=== PATIENT | female | born 1985 | race Caucasian/White ===

== ENCOUNTER 2017-08-01 04:51 | Emergency (ER) | payer OTHER ==
[2017-08-01] MEDS ORDERED: Methocarbamol 1 GM/10 ML VIAL SLOW IVP SCH (05:15)
[2017-08-01] MEDS ORDERED: HYDROmorphone 0.5 MG/0.5 ML SYRINGE ONE ×3 (05:45→06:22)
== END 2017-08-01 06:58 | disposition home or self-care (01) ==
LOC: ERS 04:51
DX: M54.5 Low back pain (principal); F98.8 Other specified behavioral and emotional disorders with onset usually occurring in childhood and adolescence; Z79.899 Other long term (current) drug therapy; X50.0XXA Overexertion from strenuous movement or load, initial encounter
CPT/HCPCS: 96374; 96375; 96376; J1170; J2800

== ENCOUNTER 2017-12-22 06:46 | Emergency (ER) | payer OTHER ==
[2017-12-22] MEDS ORDERED: Cyclobenzaprine 10 MG TAB ONE (07:21)
== END 2017-12-22 07:47 | disposition home or self-care (01) ==
LOC: ERS 06:46
DX: M54.12 Radiculopathy, cervical region (principal); M54.5 Low back pain; Z79.899 Other long term (current) drug therapy; X50.9XXA Other and unspecified overexertion or strenuous movements or postures, initial encounter
CPT/HCPCS: 96372; J2270

== ENCOUNTER 2018-02-08 10:37 | Outpatient (CLI) | payer OTHER | END 2018-02-08 10:38 | disposition home or self-care (01) | LOC: BICMRI 10:37 | PROVIDERS: ATTEND Family Medicine | DX: S46.912D Strain of unspecified muscle, fascia and tendon at shoulder and upper arm level, left arm, subsequent encounter (principal) ==

== ENCOUNTER 2018-11-13 05:08 | Emergency (ER) | payer OTHER ==
[2018-11-13] MEDS ORDERED: Ondansetron PF 4 MG/2 ML Vial ONE (05:21)
[2018-11-13] MEDS ORDERED: Pantoprazole 40 MG VIAL ONE (05:21)
[2018-11-13] MEDS ORDERED: Morphine 4 MG/ML VIAL ONE ×2 (05:21→08:00)
[2018-11-13 06:06] LABS: BHCG - Serum Negative (NEGATIVE); Pregs Control Background? CLEAR/WHITE (CLR/WHITE); Pregs Control Bar Appear? YES (CONTROL BAR)
[2018-11-13 06:20] LABS: #Basophils 0.1 thou/uL (0.0-0.2); #Eosinphils 0.1 thou/uL (0.0-0.7); #Lymphocytes 1.8 thou/uL (1.20-3.40); #Monocytes 0.6 thou/uL (0.11-0.59); #Neutrophils 6.4 thou/uL (1.40-6.50); %Basophils 0.6 % (0.0-1.0); %Eosinophils 1.5 % (0.0-10.0); %Lymphocytes 20.4 % (21.0-51.0); %Monocytes 6.9 % (0.0-10.0); %Neutrophils 70.7 % (42.0-75.0); Hemoglobin 8.8 g/dL (12.0-16.0); Hypochromia SLIGHT = 6-15 cells (100X) (0-5/hpf); MDiff Complete? YES; Mean Corpuscular Hemoglobin 20.8 pg (27.0-31.0); Mean Corpuscular Volume 67.2 fL (78.0-98.0); Mean Platelet Volume 11.2 fL (7.4-10.4); Microcytosis MODERATE=15-30 cells (100X) (0-5/hpf); Platelet Count 283 thou/uL (130-400); Platelet Morphology Comment Appears Adequate; RBC Distribution Width 15.4 % (11.5-14.5); Red Blood Cell (RBC) Count 4.23 mill/uL (4.20-5.40)
[2018-11-13 06:22] LABS: ALT (SGPT) 10 U/L (8-55); AST (SGOT) 18 U/L (5-34); Albumin 4.4 g/dL (3.5-5.0); Alkaline Phosphatase 51 U/L (40-150); Anion Gap 15 mmol/L (10-20); BUN (Urea Nitrogen) 9 mg/dL (7.0-18.7); Bilirubin, Total 0.4 mg/dL (0.2-1.2); CK (CPK) 66 U/L (29-168); Calc. Creatinine Clearance 0 mL/min (70-130); Calcium 9.5 mg/dL (7.8-10.44); Carbon Dioxide 20 mmol/L (22-29); Chloride 106 mmol/L (98-107); Estimated GFR-MDRD 80; Globulin 3.5 g/dL (2.4-3.5); Glucose 103 mg/dL (70-105); Potassium 3.7 mmol/L (3.5-5.1); Protein, Total 7.9 g/dL (6.0-8.3); Sodium 137 mmol/L (136-145)
[2018-11-13 07:29] LABS: Bilirubin Negative (Negative); Blood, Urine Negative (Negative); Clarity CLEAR (Clear); Glucose, Urine (Dipstick) Negative (Negative); Leukocyte Negative (Negative); Nitrite Negative (Negative); Protein, Urine (Dipstick) Negative (Neg-Trace); Specific Gravity, Urine 1.004 (1.002-1.036); Urobilinogen 0.2 mg/dL (0.2-1.0); pH, Urine 6.5 (5.0-9.0)
--- NOTE | 2018-11-13 07:46 | CT ---
Contrast-enhanced images of abdomen and pelvis. History: Abdominal pain. Contrast-enhanced images of the abdomen pelvis obtained after administration of IV and oral contrast. The lung bases are unremarkable. No evidence of free intraperitoneal air seen. The liver, spleen, gallbladder, pancreas, adrenal glands and kidneys are unremarkable. The distal ile um is unremarkable. Some stool noted in the proximal descending colon. The appendix definitively does not visualize. The uterus and ovaries are unremarkable. A small amount of free pelvic fluid seen. Right-sided corpus luteal cyst seen. A small amount of free air seen in the urinary bladder etiology for this is unknown. No evidence of periaortic lymphadenopathy seen. IMPRESSION: Small amount of free pelvic fluid appendix definitively not visualized.
== END 2018-11-13 08:21 | disposition home or self-care (01) ==
LOC: ERS 05:08 → EEVIPCON 05:08 → ERS 08:21
DX: K64.4 Residual hemorrhoidal skin tags (principal); D64.9 Anemia, unspecified; F98.8 Other specified behavioral and emotional disorders with onset usually occurring in childhood and adolescence; Z79.899 Other long term (current) drug therapy
CPT/HCPCS: 74177; 80053; 81003; 82274; 82550; 84703; 85025; 96361; 96374; 96375; 96376; C9113; J2270; J2405

== ENCOUNTER 2018-12-07 02:26 | Emergency (ER) | payer OTHER ==
[2018-12-07 03:09] LABS: #Basophils 0.1 thou/uL (0.0-0.2); #Eosinphils 0.3 thou/uL (0.0-0.7); #Monocytes 0.6 thou/uL (0.11-0.59); #Neutrophils 4.9 thou/uL (1.40-6.50); %Eosinophils 4.2 % (0.0-10.0); %Lymphocytes 25.4 % (21.0-51.0); %Monocytes 7.9 % (0.0-10.0); %Neutrophils 61.5 % (42.0-75.0); Hemoglobin 8.2 g/dL (12.0-16.0); Mean Corpuscular HGB CONC 31.1 g/dL (32.0-36.0); Mean Corpuscular Volume 67.5 fL (78.0-98.0); Mean Platelet Volume 10.8 fL (7.4-10.4); Platelet Count 300 thou/uL (130-400); RBC Distribution Width 16.2 % (11.5-14.5); Red Blood Cell (RBC) Count 3.88 mill/uL (4.20-5.40)
== END 2018-12-07 07:55 | disposition home or self-care (01) ==
LOC: ERS 02:26
DX: D64.9 Anemia, unspecified (principal)
CPT/HCPCS: 36430; 85025; 86850; 86900; 86901; 99284; P9016

== ENCOUNTER 2019-01-22 03:13 | Emergency (ER) | payer OTHER | END 2019-01-22 03:32 | disposition home or self-care (01) | LOC: ERS 03:13 | DX: S39.012A Strain of muscle, fascia and tendon of lower back, initial encounter (principal); S00.83XA Contusion of other part of head, initial encounter; F90.9 Attention-deficit hyperactivity disorder, unspecified type; Z79.899 Other long term (current) drug therapy; Y04.8XXA Assault by other bodily force, initial encounter | CPT/HCPCS: 99283 ==

== ENCOUNTER 2019-05-03 10:53 | Emergency (ER) | payer OTHER ==
[2019-05-03] MEDS ORDERED: Diazepam 5 MG TAB ONE ×2 (11:46→11:47)
[2019-05-03] MEDS ORDERED: Ondansetron PF 4 MG/2 ML Vial ONE (11:47)
[2019-05-03] MEDS ORDERED: Ketorolac Tromethamine 30 MG/ML VIAL ONE (11:47)
[2019-05-03] MEDS ORDERED: Morphine 4 MG/ML VIAL ONE ×2 (11:47→12:43)
[2019-05-03] MEDS ORDERED: Dexamethasone 4 mg/ml Vial ONE (11:51)
== END 2019-05-03 13:43 | disposition home or self-care (01) ==
LOC: ERS 10:53
DX: M54.5 Low back pain (principal); F90.9 Attention-deficit hyperactivity disorder, unspecified type; Z79.899 Other long term (current) drug therapy
CPT/HCPCS: 94760; 96374; 96375; 96376; J1100; J1885; J2270; J2405

== ENCOUNTER 2019-07-04 18:51 | Emergency (ER) | payer OTHER ==
[~2019-07-04 18:51] MED LIST: Iopamidol-370 76% 500 ML 1 ML ONE
[2019-07-04] MEDS ORDERED: Fentanyl 100 MCG/2 ML VIAL ONE (19:19)
[2019-07-04] MEDS ORDERED: Promethazine HCl 25 MG/ML VIAL ONE (19:21)
[2019-07-04 19:31] LABS: Hemoglobin 11.2 g/dL (12.0-16.0); Mean Corpuscular HGB CONC 32.8 g/dL (32.0-36.0); Mean Corpuscular Hemoglobin 24.3 pg (27.0-31.0); Mean Corpuscular Volume 74.1 fL (78.0-98.0); Mean Platelet Volume 10.5 fL (7.4-10.4); Platelet Count 281 thou/uL (130-400); RBC Distribution Width 15.8 % (11.5-14.5); Red Blood Cell (RBC) Count 4.59 mill/uL (4.20-5.40); White Blood Cell (WBC) Count 13.6 thou/uL (4.8-10.8)
[2019-07-04 19:32] LABS: #Lymphocytes 0.4 thou/uL (1.20-3.40); #Monocytes 0.5 thou/uL (0.11-0.59); #Neutrophils 12.6 thou/uL (1.40-6.50); %Basophils 0.2 % (0.0-1.0); %Eosinophils 0.2 % (0.0-10.0); %Lymphocytes 2.8 % (21.0-51.0); %Neutrophils 92.8 % (42.0-75.0)
[2019-07-04 19:47] LABS: Anisocytosis SLIGHT = 6-15 cells (100X) (0-5/hpf); Hypochromia SLIGHT = 6-15 cells (100X) (0-5/hpf); MDiff Complete? YES; Microcytosis SLIGHT = 6-15 cells (100X) (0-5/hpf); Ovalocytes SLIGHT = 2-5 cells (100X) (0-1/hpf); Platelet Morphology Comment Appears Adequate; Polychromasia SLIGHT = 2-3 cells (100X) (0-2/hpf); Tear Drops SLIGHT = 2-5 cells (100X) (0-1/hpf)
[2019-07-04 19:52] LABS: ALT (SGPT) 13 U/L (8-55); AST (SGOT) 18 U/L (5-34); Albumin 4.5 g/dL (3.5-5.0); Alkaline Phosphatase 56 U/L (40-110); Anion Gap 17 mmol/L (10-20); BUN (Urea Nitrogen) 16 mg/dL (7.0-18.7); Bilirubin, Total 0.8 mg/dL (0.2-1.2); Calc. Creatinine Clearance 0 mL/min (70-130); Calcium 9.3 mg/dL (7.8-10.44); Carbon Dioxide 19 mmol/L (22-29); Chloride 104 mmol/L (98-107); Estimated GFR-MDRD 80; Globulin 3.4 g/dL (2.4-3.5); Glucose 109 mg/dL (70-105); Lipase 21 U/L (8-78); Potassium 3.5 mmol/L (3.5-5.1); Protein, Total 7.9 g/dL (6.0-8.3); Sodium 136 mmol/L (136-145)
[2019-07-04] MEDS ORDERED: HYDROmorphone 0.5 MG/0.5 ML SYRINGE ONE ×2 (20:01→22:05)
[2019-07-04] MEDS ORDERED: Metoclopramide HCl 10 MG/2 ML VIAL ONE (20:02)
[2019-07-04] MEDS ORDERED: Lidocaine Viscous Sol 2% 15 ml UD Cup ONE (20:04)
[2019-07-04] MEDS ORDERED: Mag-Al 1200 mg/1200 mg/30 ML UDCUP ONE (20:04)
--- NOTE | 2019-07-04 20:05 | ULT ---
EXAM: US Gallbladder RUQ CLINICAL HISTORY: Pain. Evaluate for cholecystitis. COMPARISON: 07/19/2013 FINDINGS: Pancreas: Increased echogenicity of the head of pancreas. Remainder the pancreas is obscured by meghan l gas Liver:Normal hepatic parenchymal echotexture. No hepatic masses or intrahepatic biliary dilatation. T he contour of the hepatic margin is maintained. Right hepatic lobe measures 14.1 cm Gallbladder: No sonographic evidence of cholelithiasis, gallbladder wall thickening or pericholecysti c fluid. Dejesus's sign:Negative Portal Vein: Patent. Appropriate directional flow Bile ducts: Common bile duct diameter 0.2 cm Right kidney: Location of the pelvis without calyceal dilatation.. Right kidney measures 9.4 cm in [facility]. IMPRESSION: 1. No sonographic evidence of cholelithiasis or cholecystitis. 2. Nonspecific increased echogenicity of the pancreas. 3. Dilatation of the right renal pelvis without calyceal dilatation. Significance is uncertain. Corre lation made with CT from 09/29/2018 does demonstrate a prominent right renal pelvis.. Transcribed Date/Time: 07/04/2019 8:31 PM
[2019-07-04] MEDS ORDERED: diphenhydrAMINE 50 MG/ML VIAL ONE (20:20)
[2019-07-04 21:00] LABS: Bilirubin Negative (Negative); Blood, Urine Negative (Negative); Clarity Clear (Clear); Glucose, Urine (Dipstick) Normal (Negative); Leukocyte Negative Leu/uL (Negative); Nitrite Negative (Negative); Protein, Urine (Dipstick) 10 mg/dL (Neg-Trace); Urobilinogen Normal mg/dL (Less than 2)
[2019-07-04 21:01] LABS: Pregnancy Test - Urine (BHCG) Negative (Negative); Pregu Control Background? CLEAR/WHITE (CLR/WHITE); Pregu Control Bar Appear? YES (CONTROL BAR); Specific Gravity 1.024 (1.002-1.036)
--- NOTE | 2019-07-04 21:30 | CT ---
EXAM: CT ABDOMEN AND PELVIS HISTORY: Abdominal pain. History of ulcers. Chills. COMPARISON: 11/13/2018 Procedure: Multiple contiguous axial images were obtained and a CT of the abdomen and pelvis with IV contrast. C oronal reformats were performed. FINDINGS: Lower Chest: within normal limits. Vessels: Normal caliber aorta Heart: Normal heart size Abdomen: Portal vein:Patent Gallbladder: No calcified gallstones. Normal caliber wall. Liver: within normal limits. Pancreas: within normal limits. Spleen: No abnormal enhancement. There does appear to be mild fullness of the splenic vein with mild varices at the splenic hilum. Adrenals: within normal limits. Kidneys: Symmetric enhancement. No obstructive uropathy. No evidence of calyceal dilatation. Slightly prominent right renal pelvis is noted. Peritoneum: No ascites or free air, no fluid collection. Bowel: Limited evaluation due to the lack of oral contrast administration. No evidence of bowel obstr uction. Ileocecal junction is unremarkable. Normal caliber appendix. Scattered fecal material in a nondistended, nondilated colon. Mesentery and Retroperitoneum: No enlarged mesenteric or retroperitoneal lymph nodes. Abdominal Wall: within normal limits. Pelvis: Reproductive Organs: Uterus and adnexal structures are grossly unremarkable. Pelvis: No mass, lymphadenopathy, free air or free fluid. Bladder: Limited evaluation due to inadequate distention. Grossly no abnormality. Bones: within normal limits. IMPRESSION: 1. No evidence of acute intraabdominal\pelvic abnormality. Line 2. Mild fullness of the splenic vein. Mild splenic varices. Significance is uncertain. Correlate clin ically. Nonemergent hepatic Doppler ultrasound can be performed, along with a GI consultation.
[2019-07-04] MEDS ORDERED: Ondansetron PF 4 MG/2 ML Vial ONE (22:05)
== END 2019-07-04 23:22 | disposition home or self-care (01) ==
LOC: ERS 18:51
DX: K82.8 Other specified diseases of gallbladder (principal); F98.8 Other specified behavioral and emotional disorders with onset usually occurring in childhood and adolescence
CPT/HCPCS: 74177; 76705; 80053; 81003; 81025; 83690; 85025; 96361; 96365; 96375; 96376; J1170; J1200; J2405; J2550; J2765; J3010; Q9967

== ENCOUNTER 2019-10-01 21:35 | Emergency (ER) | payer OTHER ==
[2019-10-01] MEDS ORDERED: Morphine 4 MG/ML VIAL ONE (22:17)
[2019-10-01] MEDS ORDERED: Ketorolac Tromethamine 30 MG/ML VIAL ONE (22:17)
[2019-10-01] MEDS ORDERED: Ondansetron PF 4 MG/2 ML Vial ONE (22:17)
[2019-10-01] MEDS ORDERED: Dexamethasone 10 MG/ML VIAL ONE (22:17)
[2019-10-01] MEDS ORDERED: Methocarbamol 1 GM in Sodium Chloride 0.9% 100 ML IVPB SCH (23:59)
[2019-10-02] MEDS ORDERED: Morphine 4 MG/ML VIAL ONE (00:03)
== END 2019-10-02 00:22 | disposition home or self-care (01) ==
LOC: ERS 21:35
DX: M62.830 Muscle spasm of back (principal); F98.8 Other specified behavioral and emotional disorders with onset usually occurring in childhood and adolescence; Z79.899 Other long term (current) drug therapy
CPT/HCPCS: 96361; 96365; 96375; 96376; J1100; J1885; J2270; J2405; J2800; J3490

== ENCOUNTER 2019-12-11 01:49 | Emergency (ER) | payer OTHER ==
[2019-12-11 03:04] LABS: HIV (1/2) Antibody/Antigen Non-Reactive (NonReactive); HIV 1/2 INDEX 0.09 S/CO (<1.00); Hep B Surf AB Non-Reactive (NonReactive); Hep C IgG Ab Non-Reactive (NonReactive); Hep C Index 0.09 S/CO (0-0.79)
== END 2019-12-11 02:17 | disposition home or self-care (01) ==
LOC: ERS 01:49
DX: Z77.21 Contact with and (suspected) exposure to potentially hazardous body fluids (principal); F98.8 Other specified behavioral and emotional disorders with onset usually occurring in childhood and adolescence; Z79.899 Other long term (current) drug therapy
CPT/HCPCS: 86706; 86803; 87389; 99283

== ENCOUNTER 2020-04-03 12:37 | Outpatient (CLI) | payer OTHER ==
--- NOTE | 2020-04-03 14:14 | MRI ---
Exam: MRI cervical spine without contrast HISTORY: Cervical radiculopathy. Neck pain and headache for weeks.. COMPARISON: None FINDINGS: Appropriate T1 marrow signal intensity of the cervical vertebrae. Cervical spine vertebral body heig ht is maintained. No fracture. No significant STIR hyperintensity to suggest ligamentous injury or vertebral body edema Visualized brain parenchyma, cervicomedullary junction, cervical cord and the upper thoracic cord hav e a normal size and signal intensity C2-C3: No significant central canal stenosis or significant neural foraminal narrowing C3-C4: Minimal broad-based disc bulge. No significant central canal stenosis or significant neural fo raminal narrowing. C4-C5: Broad-based disc bulge abuts the thecal sac. No significant central canal stenosis or signific ant neural foraminal narrowing. C5-C6: Broad-based discussed by complex. No significant central canal stenosis or significant neural foraminal narrowing C6-C7: No significant central canal stenosis. Patent neural foramina C7-T1: No significant central canal stenosis. Patent neural foramina IMPRESSION: No significant central canal stenosis or neural foraminal narrowing throughout the cervical spine Transcribed Date/Time: 04/03/2020 2:29 PM
== END 2020-04-03 12:38 | disposition home or self-care (01) ==
LOC: SCSMRI 12:37
DX: M54.12 Radiculopathy, cervical region (principal)
CPT/HCPCS: 72141

== ENCOUNTER 2020-04-14 23:07 | Emergency (ER) | payer OTHER ==
[2020-04-15 13:00] LABS: SARS-CoV-2 MS2 Positive; SARS-CoV-2 N Gene Negative; SARS-CoV-2 S Gene Negative; SARS-CoV-2 by NAA Not Detected (NotDetected); SARS-CoV-2 orf1ab Negative
== END 2020-04-14 23:25 | disposition home or self-care (01) ==
LOC: ERS 23:07 → EEVIPCON 23:07 → ERS 23:25
DX: Z20.828 Contact with and (suspected) exposure to other viral communicable diseases (principal)
CPT/HCPCS: 87635; U0003

== ENCOUNTER 2020-10-02 01:55 | Emergency (ER) | payer OTHER ==
[2020-10-02] MEDS ORDERED: Morphine 4 MG/ML VIAL ONE (02:42)
[2020-10-02] MEDS ORDERED: Promethazine HCl 25 MG/ML VIAL ONE (02:42)
[2020-10-02 02:51] LABS: Hemoglobin 10.7 g/dL (12.0-16.0); Mean Corpuscular HGB CONC 31.3 g/dL (32.0-36.0); Mean Corpuscular Hemoglobin 23.7 pg (27.0-31.0); Mean Corpuscular Volume 75.8 fL (78.0-98.0); Mean Platelet Volume 10.5 fL (7.4-10.4); Platelet Count 324 thou/uL (130-400); RBC Distribution Width 17.3 % (11.5-14.5); White Blood Cell (WBC) Count 17.5 thou/uL (4.8-10.8)
[2020-10-02 03:05] LABS: BHCG - Serum Negative (NEGATIVE); Pregs Control Background? CLEAR/WHITE (CLR/WHITE); Pregs Control Bar Appear? YES (CONTROL BAR)
[2020-10-02 03:07] LABS: ALT (SGPT) 28 U/L (8-55); AST (SGOT) 35 U/L (5-34); Albumin 3.9 g/dL (3.5-5.0); Alkaline Phosphatase 48 U/L (40-110); Anion Gap 13 mmol/L (10-20); BUN (Urea Nitrogen) 15 mg/dL (7.0-18.7); Bilirubin, Total 0.4 mg/dL (0.2-1.2); Calc. Creatinine Clearance 0 mL/min (70-130); Calcium 9.4 mg/dL (7.8-10.44); Carbon Dioxide 21 mmol/L (22-29); Chloride 107 mmol/L (98-107); Globulin 2.9 g/dL (2.4-3.5); Glucose 130 mg/dL (70-105); Lipase 13 U/L (8-78); Potassium 3.4 mmol/L (3.5-5.1); Protein, Total 6.8 g/dL (6.0-8.3); Sodium 138 mmol/L (136-145)
[2020-10-02 03:13] LABS: Band 9 % (5-11); Elliptocytes SLIGHT = 2-5 cells (100X) (0-1/hpf); Lymphocytes 4 % (21-51); MDiff Complete? YES; Microcytosis SLIGHT = 6-15 cells (100X) (0-5/hpf); Monocytes 1 % (0-10); Neutrophil 86 % (42-75)
[2020-10-02] MEDS ORDERED: Mag-Al 1200 mg/1200 mg/30 ML UDCUP ONE (04:01)
[2020-10-02] MEDS ORDERED: Lidocaine Viscous Sol 2% 15 ml UD Cup ONE (04:01)
[2020-10-02] MEDS ORDERED: Iopamidol 370 76% 100 ML VIAL ONE (12:25)
== END 2020-10-02 04:22 | disposition home or self-care (01) ==
LOC: ERS 01:55
DX: R11.2 Nausea with vomiting, unspecified (principal); R10.33 Periumbilical pain
CPT/HCPCS: 36415; 74177; 80053; 83690; 84703; 85025; 96365; 96372; J0500; J2270; J2550; Q9967

== ENCOUNTER 2022-01-09 21:02 | Emergency (ER) | payer BC, OTHER ==
[2022-01-09] MEDS ORDERED: Ketorolac Tromethamine 30 MG/ML VIAL ONE (21:16)
[2022-01-09] MEDS ORDERED: Metoclopramide HCl 10 MG/2 ML VIAL ONE (21:16)
[2022-01-09] MEDS ORDERED: Ondansetron PF 4 MG/2 ML Vial ONE (21:16)
[2022-01-09] MEDS ORDERED: Benzonatate 100 MG CAP ONE (21:27)
[2022-01-09 21:41] LABS: #Basophils 0.1 thou/uL (0.0-0.2); #Lymphocytes 0.6 thou/uL (1.20-3.40); #Monocytes 0.9 thou/uL (0.11-0.59); #Neutrophils 7.1 thou/uL (1.40-6.50); %Basophils 0.6 % (0.0-1.0); %Eosinophils 0.3 % (0.0-10.0); %Lymphocytes 7.2 % (21.0-51.0); %Neutrophils 81.9 % (42.0-75.0); Hemoglobin 11.7 g/dL (12.0-16.0); Mean Corpuscular HGB CONC 33.4 g/dL (32.0-36.0); Mean Corpuscular Hemoglobin 28.1 pg (27.0-31.0); Mean Corpuscular Volume 84.2 fL (78.0-98.0); Mean Platelet Volume 9.6 fL (7.4-10.4); Platelet Count 194 thou/uL (130-400); RBC Distribution Width 15.1 % (11.5-14.5); Red Blood Cell (RBC) Count 4.17 mill/uL (4.20-5.40); White Blood Cell (WBC) Count 8.7 thou/uL (4.8-10.8)
[2022-01-09 22:31] LABS: SARS-CoV-2 NAA Rapid Test DETECTED (NotDetected)
[2022-01-09 22:34] LABS: ALT (SGPT) 20 U/L (8-55); AST (SGOT) 31 U/L (5-34); Albumin 3.9 g/dL (3.5-5.0); Alkaline Phosphatase 60 U/L (40-110); Anion Gap 16 mmol/L (10-20); BUN (Urea Nitrogen) 10 mg/dL (7.0-18.7); Bilirubin, Total 0.3 mg/dL (0.2-1.2); Calc. Creatinine Clearance 0 mL/min (70-130); Calcium 8.9 mg/dL (7.8-10.44); Carbon Dioxide 19 mmol/L (22-29); Chloride 103 mmol/L (98-107); Estimated GFR 104; Globulin 3.5 g/dL (2.4-3.5); Glucose 95 mg/dL (70-105); Potassium 4.3 mmol/L (3.5-5.1); Protein, Total 7.4 g/dL (6.0-8.3); Sodium 134 mmol/L (136-145)
== END 2022-01-09 23:58 | disposition home or self-care (01) ==
LOC: EEVIPCON 21:02 → ERS 21:02
DX: U07.1 COVID-19 (principal); Z79.899 Other long term (current) drug therapy
CPT/HCPCS: 71045; 80053; 85025; 96361; 96374; 96375; J1885; J2405; J2765

== ENCOUNTER 2022-03-20 15:05 | Emergency (ER) | payer BC ==
[2022-03-20] MEDS ORDERED: diphenhydrAMINE 12.5 MG/5 ML UDCUP ONE (15:23)
[2022-03-20] MEDS ORDERED: Ketorolac Tromethamine 30 MG/ML VIAL ONE (15:23)
[2022-03-20] MEDS ORDERED: Metoclopramide HCl 10 MG/2 ML VIAL ONE ×2 (15:23→17:18)
[2022-03-20] MEDS ORDERED: Acetaminophen 500 MG TAB ONE (15:23)
[2022-03-20] MEDS ORDERED: diphenhydrAMINE 50 MG/ML VIAL ONE ×2 (15:25→17:35)
== END 2022-03-20 18:23 | disposition home or self-care (01) ==
LOC: ERS 15:05
DX: G43.909 Migraine, unspecified, not intractable, without status migrainosus (principal)
CPT/HCPCS: 96365; 96375; 96376; J1200; J1885; J2765; Q0163

== ENCOUNTER 2022-03-24 07:42 | Emergency (ER) | payer BC ==
[2022-03-24] MEDS ORDERED: Lorazepam 2 MG/ML VIAL ONE (07:56)
[2022-03-24 08:23] LABS: #Basophils 0.1 thou/uL (0.0-0.2); #Eosinphils 0.3 thou/uL (0.0-0.7); #Lymphocytes 2.4 thou/uL (1.20-3.40); #Monocytes 0.9 thou/uL (0.11-0.59); #Neutrophils 5.4 thou/uL (1.40-6.50); %Basophils 0.8 % (0.0-1.0); %Eosinophils 3.4 % (0.0-10.0); %Lymphocytes 26.8 % (21.0-51.0); %Monocytes 9.3 % (0.0-10.0); %Neutrophils 59.7 % (42.0-75.0); Hemoglobin 12.1 g/dL (12.0-16.0); Mean Corpuscular HGB CONC 32.9 g/dL (32.0-36.0); Mean Corpuscular Hemoglobin 28.3 pg (27.0-31.0); Mean Corpuscular Volume 85.9 fL (78.0-98.0); Mean Platelet Volume 9.1 fL (7.4-10.4); Platelet Count 247 thou/uL (130-400); Red Blood Cell (RBC) Count 4.28 mill/uL (4.20-5.40); White Blood Cell (WBC) Count 9.1 thou/uL (4.8-10.8)
[2022-03-24 08:28] LABS: Bilirubin Negative (Negative); Blood, Urine Negative (Negative); Clarity Clear (Clear); Glucose, Urine (Dipstick) Normal (Negative); Ketone, Urine Negative (Negative); Leukocyte Negative Leu/uL (Negative); Nitrite Negative (Negative); Protein, Urine (Dipstick) Negative (Neg-Trace); Urobilinogen Normal mg/dL (Less than 2)
[2022-03-24 08:31] LABS: Pregnancy Test - Urine (BHCG) Negative (Negative); Pregu Control Background? CLEAR/WHITE (CLR/WHITE); Pregu Control Bar Appear? YES (CONTROL BAR)
[2022-03-24 08:58] LABS: ALT (SGPT) 36 U/L (8-55); AST (SGOT) 22 U/L (5-34); Albumin 4.2 g/dL (3.5-5.0); Alkaline Phosphatase 60 U/L (40-110); Anion Gap 14 mmol/L (10-20); BUN (Urea Nitrogen) 12 mg/dL (7.0-18.7); Bilirubin, Total 0.3 mg/dL (0.2-1.2); Calc. Creatinine Clearance 0 mL/min (70-130); Calcium 9.1 mg/dL (7.8-10.44); Carbon Dioxide 25 mmol/L (22-29); Chloride 107 mmol/L (98-107); Estimated GFR 73; Globulin 2.7 g/dL (2.4-3.5); Glucose 85 mg/dL (70-105); Potassium 4.3 mmol/L (3.5-5.1); Protein, Total 6.9 g/dL (6.0-8.3); Sodium 142 mmol/L (136-145)
[2022-03-24] MEDS ORDERED: Iopamidol-370 76% 500 ML 1 ML ONE (10:08)
== END 2022-03-24 10:04 | disposition home or self-care (01) ==
LOC: ERS 07:42
DX: R56.9 Unspecified convulsions (principal); R51.9 Headache, unspecified
CPT/HCPCS: 36415; 70496; 80053; 81003; 81025; 85025; 93005; 96374; J2060; Q9967

== ENCOUNTER 2022-05-04 10:14 | Outpatient (CLI) | payer BC | END 2022-05-04 10:15 | disposition home or self-care (01) | LOC: MRI 10:14 | PROVIDERS: ATTEND Nurse Practitioner Family | DX: R56.9 Unspecified convulsions (principal) | CPT/HCPCS: 70553 ==

== ENCOUNTER 2022-08-09 10:16 | Emergency (ER) | payer BC ==
[2022-08-09] MEDS ORDERED: diphenhydrAMINE 50 MG/ML VIAL ONE (11:19)
[2022-08-09] MEDS ORDERED: Ketorolac Tromethamine 30 MG/ML VIAL ONE (11:19)
[2022-08-09] MEDS ORDERED: Metoclopramide HCl 10 MG/2 ML VIAL ONE (11:19)
[2022-08-09] MEDS ORDERED: Dexamethasone 10 MG/ML VIAL ONE (11:19)
[2022-08-09 11:46] LABS: BHCG - Serum Negative (NEGATIVE)
[2022-08-09 11:47] LABS: Pregs Control Background? CLEAR/WHITE (CLR/WHITE); Pregs Control Bar Appear? YES (CONTROL BAR)
[2022-08-09 11:56] LABS: #Eosinphils 0.2 thou/uL (0.0-0.7); #Lymphocytes 2.4 thou/uL (1.20-3.40); #Monocytes 0.7 thou/uL (0.11-0.59); #Neutrophils 6.3 thou/uL (1.40-6.50); %Basophils 0.5 % (0.0-1.0); %Eosinophils 1.7 % (0.0-10.0); %Lymphocytes 25.2 % (21.0-51.0); %Monocytes 7.1 % (0.0-10.0); %Neutrophils 65.6 % (42.0-75.0); Hemoglobin 14.5 g/dL (12.0-16.0); Mean Corpuscular HGB CONC 33.4 g/dL (32.0-36.0); Mean Corpuscular Hemoglobin 29.8 pg (27.0-31.0); Mean Corpuscular Volume 89.1 fl (78.0-98.0); Mean Platelet Volume 9.2 fL (7.4-10.4); Platelet Count 274 10x3/uL (130-400); RBC Distribution Width 14.3 % (11.5-14.5); Red Blood Cell (RBC) Count 4.85 mill/uL (4.20-5.40); White Blood Cell (WBC) Count 9.6 10x3/uL (4.8-10.8)
[2022-08-09 12:03] LABS: ALT (SGPT) 19 U/L (8-55); AST (SGOT) 28 U/L (5-34); Albumin 4.5 g/dL (3.5-5.0); Alkaline Phosphatase 60 U/L (40-110); Anion Gap 16 mmol/L (10-20); BUN (Urea Nitrogen) 12 mg/dL (7.0-18.7); Bilirubin, Total 0.3 mg/dL (0.2-1.2); Calc. Creatinine Clearance 0 mL/min (70-130); Calcium 9.5 mg/dL (7.8-10.44); Carbon Dioxide 21 mmol/L (22-29); Chloride 106 mmol/L (98-107); Estimated GFR 83; Globulin 3.6 g/dL (2.4-3.5); Glucose 71 mg/dL (70-105); Potassium 4.5 mmol/L (3.5-5.1); Protein, Total 8.1 g/dL (6.0-8.3); Sodium 138 mmol/L (136-145)
[2022-08-09 13:07] LABS: Bilirubin Negative (Negative); Blood, Urine Negative (Negative); Clarity Clear (Clear); Glucose, Urine (Dipstick) Normal (Negative); Ketone, Urine Negative (Negative); Leukocyte Negative Leu/uL (Negative); Nitrite Negative (Negative); Protein, Urine (Dipstick) Negative (Neg-Trace); Specific Gravity, Urine 1.005 (1.002-1.036); Urobilinogen Normal mg/dL (Less than 2); pH, Urine 6.5 (5.0-9.0)
== END 2022-08-09 15:02 | disposition home or self-care (01) ==
LOC: ERS 10:16
DX: R51.9 Headache, unspecified (principal)
CPT/HCPCS: 70450; 80053; 81003; 84703; 85025; 96365; 96375; J1100; J1200; J1885; J2765

== ENCOUNTER 2024-07-23 14:23 | Emergency (ER) | payer BC ==
[~2024-07-23 14:23] MED LIST changes: -Iopamidol-370 76% 500 ML 1 ML ONE; +Iopamidol-370 76% 500 ML MDV (1 ML CHARGE) ONE
[2024-07-23] MEDS ORDERED: Ketorolac Tromethamine 30 MG (1 mL) VIAL ONE (14:43)
[2024-07-23 15:01] LABS: #Basophils 0.05 10x3/uL (0.0-0.2); %Basophils 0.7 % (0.0-1.0); %Eosinophils 2.1 % (0.0-10.0); %Lymphocytes 30.4 % (21.0-51.0); %Neutrophils 59.1 % (42.0-75.0); Hematocrit 42.4 % (36.0-47.0); Hemoglobin 14.8 g/dL (12.0-16.0); Mean Corpuscular HGB CONC 34.9 g/dL (32.0-36.0); Mean Corpuscular Hemoglobin 30.8 pg (27.0-31.0); Mean Corpuscular Volume 88.3 fL (78.0-98.0); Mean Platelet Volume 10.5 fL (7.4-10.4); Platelet Count 278 10x3/uL (130-400); RBC Distribution Width 11.9 % (11.5-14.5)
[2024-07-23 15:10] LABS: BHCG - Serum Negative (NEGATIVE); Pregs Control Bar Appear? YES (CONTROL BAR)
[2024-07-23] MEDS ORDERED: Morphine 4 MG/ML VIAL ONE (15:13)
[2024-07-23] MEDS ORDERED: Ondansetron PF 4 MG/2 ML Vial ONE (15:13)
[2024-07-23 15:20] LABS: Troponin I Less than 0.010 ng/mL (< 0.028)
[2024-07-23] MEDS ORDERED: diphenhydrAMINE 50 MG/ML VIAL ONE (15:23)
[2024-07-23 15:36] LABS: Pregs Control Background? NOT CLEAR/LIGHT PINK (CLR/WHITE)
== END 2024-07-23 16:47 | disposition home or self-care (01) ==
LOC: ERS 14:23
DX: S20.312A Abrasion of left front wall of thorax, initial encounter (principal); R07.89 Other chest pain; V47.5XXA Car driver injured in collision with fixed or stationary object in traffic accident, initial encounter; Y93.89 Activity, other specified; Y92.410 Unspecified street and highway as the place of occurrence of the external cause
CPT/HCPCS: 70450; 71260; 72125; 74177; 84484; 84703; 85025; 93005; 96374; 96375; J1200; J1885; J2270; J2405; Q9967

== ENCOUNTER 2025-01-20 07:37 | Outpatient (CLI) | payer BC | END 2025-01-20 07:38 | disposition home or self-care (01) | LOC: SCSMRI 07:37 | PROVIDERS: ATTEND Clinical Nurse Specialist Medical-Surgical | DX: M50.13 Cervical disc disorder with radiculopathy, cervicothoracic region (principal); M50.11 Cervical disc disorder with radiculopathy, high cervical region; M50.121 Cervical disc disorder at C4-C5 level with radiculopathy; M50.122 Cervical disc disorder at C5-C6 level with radiculopathy; M53.84 Other specified dorsopathies, thoracic region | CPT/HCPCS: 72141; 72146 ==

== ENCOUNTER 2025-04-19 20:17 | Emergency (ER) | payer BC | END 2025-04-19 21:30 | disposition home or self-care (01) | LOC: ERS 20:17 | DX: M62.830 Muscle spasm of back (principal); X50.0XXA Overexertion from strenuous movement or load, initial encounter | CPT/HCPCS: 99283 ==